=== PATIENT | male | born 1980 | race Caucasian/White ===

== ENCOUNTER 2018-07-27 20:54 | Emergency (ER) | payer OTHER ==
[2018-07-27 20:58] VITALS: BP 141/73
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
[2018-07-27 23:26] LABS: HEPATITIS C ANTIBODY TOTAL NEGATIVE (NEGATIVE); HIV TYPE 1 AND 2 NEGATIVE (NEGATIVE)
== END 2018-07-27 22:04 | disposition home or self-care (01) ==
DX: S80.219A Abrasion, unspecified knee, initial encounter (principal); S60.519A Abrasion of unspecified hand, initial encounter; Z77.21 Contact with and (suspected) exposure to potentially hazardous body fluids; Y08.89XA Assault by other specified means, initial encounter; Y99.0 Civilian activity done for income or pay
CPT/HCPCS: 86707-90; G0472